=== PATIENT | female | born 1945 | race Caucasian/White ===

== ENCOUNTER 2017-07-03 09:32 | Emergency (ER) | payer MEDICARE, OTHER ==
[~2017-07-03] VITALS: Ht 165.1 cm; Wt 90.0 kg
[2017-07-03 09:33] VITALS: BP 141/60
[2017-07-03] MEDS ORDERED: MONT10TA2 (09:42)
[2017-07-03] MEDS ORDERED: NATU97.5 (09:42)
[2017-07-03] MEDS ORDERED: ROBA500T PO (10:23)
[2017-07-03] MEDS ORDERED: KETO10TAB PO (10:23)
--- NOTE | 2017-07-03 10:28 | REP ---
LUMBOSACRAL SPINE: Five views of the lumbosacral spine are performed. There is no compression fracture or malalignment. There is evidence of prior fusion with posterior rods and screws seen between the levels of L2 and L1. Vertebral bodies are well aligned. There is slight disc space narrowing at multiple levels. Bony bridging is seen along the lateral margins of the spinal rods on the AP view. The patient also appears to have had a laminectomy at the L2 through S1 levels. IMPRESSION: Status post fusion surgery. No acute fracture or dislocation. Signed by Nikolas Garcia MD 07/03/2017 12:51 P
[2017-07-03] MEDS ORDERED: KETOROLAC 60 MG/2 ML VIAL (J1885) IM ONE (10:30)
== END 2017-07-03 11:01 | disposition home or self-care (01) ==
LOC: M ED 09:32
DX: M54.5 Low back pain (principal); G89.29 Other chronic pain; E07.9 Disorder of thyroid, unspecified; Z98.1 Arthrodesis status; Z79.899 Other long term (current) drug therapy
CPT/HCPCS: 72110; 96372; 99282; J1885; J3360